=== PATIENT | female | born 1965 | race Caucasian/White ===

== ENCOUNTER → 2019-11-23 16:37 | Outpatient (CLI) | payer OTHER, SELFPAY ==
--- NOTE | 2019-11-23 | DI.MRI.S_ITS ---
PROCEDURE: MR KNEE RT WO CON INDICATIONS: right knee pain TECHNIQUE: Noncontrast sagittal PD fast spin echo and T2 fast spin echo with fat saturation, sagittal 3-D FLASH with fat saturation; coronal T1 spin echo and PD fast spin echo with fat saturation, and axial PD fast spin echo with fat saturation through the knee. COMPARISON: [facility], MR, LOWER EXTREM. JNT WO CONTRAST, 12/12/2008, 7:49. FINDINGS: Image quality: Degraded by metallic artifact. Visualized marrow signal is grossly unremarkable. The quadriceps tendon demonstrates moderate to high-grade tearing, which is most severe roughly 40 mm proximal to the patellar insertion site. Patellar tendon is intact. Peripheral soft tissues are grossly unremarkable. IMPRESSION: 1. Limited examination secondary to knee arthroplasty artifact. 2. Moderate to high-grade tearing of the quadriceps tendon. Dictated by: Uday Lovell M.D. on 11/26/2019 at 10:36 Approved by: Uday Lovell M.D. on 11/26/2019 at 10:40
== END ==
PROVIDERS: Family Provider Specialist; PCP Family Medicine; Referring Provider Orthopaedic Surgery; Visit Provider Orthopaedic Surgery
DX: M25.561 Pain in right knee (principal); S76.111A Strain of right quadriceps muscle, fascia and tendon, initial encounter; Z96.651 Presence of right artificial knee joint
CPT/HCPCS: 73721

== ENCOUNTER → 2019-12-15 10:40 | Outpatient (CLI) | payer OTHER, SELFPAY ==
[2019-12-16 16:04] LABS: COVID19 Sendout Not Detected (Not Detect)
== END ==
PROVIDERS: Family Provider Specialist; PCP Family Medicine; Visit Provider Physician Assistant
DX: Z11.59 Encounter for screening for other viral diseases (principal)
CPT/HCPCS: 87635

== ENCOUNTER → 2023-12-07 07:50 | Outpatient (CLI) | payer OTHER, SELFPAY ==
--- NOTE | 2023-12-07 07:52 | DI.MRI.S_ITS ---
PROCEDURE: MR FEMUR LT WO CON INDICATIONS: PARTIAL HAMSTRING TEAR,LEFT TECHNIQUE: Noncontrast coronal and sagittal T1 spin echo and STIR; axial T1 spin echo and T2 fast spin echo with fat saturation through the left femur. COMPARISON: None. FINDINGS: Image quality: Excellent. Bones: Susceptibility artifact about bilateral knee, likely representing bilateral knee arthroplasty. Marrow signal for both femurs are otherwise normal for age. Soft tissues: Prior repair of the left hamstring tendon with suture anchor at the left ischial tuberosity. The left semimembranosus tendon origin is intact. There is low-grade, partial thickness tear of the conjoined tendon at the ischial tuberosity. There is additional partial thickness tear of the adductor jj tendon at the ischial tuberosity insertion. No associated muscle edema. No fatty atrophy. IMPRESSION: 1. Status post prior repair of the left hamstring tendons with suture anchors at the left ischial tuberosity. Partial-thickness tear of the conjoined tendon of the left hamstring , and partial-thickness tear of the left adductor jj at the ischial tuberosity. Dictated by: Sailaja Reyes M.D. on 12/08/2023 at 21:30 Approved by: Sailaja Reyes M.D. on 12/08/2023 at 21:41
== END ==
LOC: MRI 07:52
PROVIDERS: Family Provider Specialist; PCP Student in an Organized Health Care Education/Training Program; Referring Provider Orthopaedic Surgery; Visit Provider Orthopaedic Surgery
DX: S76.312A Strain of muscle, fascia and tendon of the posterior muscle group at thigh level, left thigh, initial encounter (principal); X58.XXXA Exposure to other specified factors, initial encounter
CPT/HCPCS: 73718

== ENCOUNTER 2024-09-06 10:23 | Emergency (ER) | payer OTHER, SELFPAY ==
[2024-09-06] VITALS (7 sets, daily range): BP systolic 153–185; BP diastolic 73–99; PULSE 56–70; RESP 13–19; O2SAT 91–100; BMI 30.9
--- NOTE | 2024-09-06 10:35 | DI.RAD.S_ITS ---
PROCEDURE: XR CHEST 1V INDICATIONS: Shortness of breath TECHNIQUE: One view of the chest was acquired. COMPARISON: None. FINDINGS: Surgical changes and devices: Left chest wall device. Lungs and pleura: Lungs are clear. No pleural effusions or pneumothorax. Mediastinum: Mediastinal contours appear normal. Heart size is normal. Bones and chest wall: No suspicious bony lesions. Overlying soft tissues appear unremarkable. IMPRESSION: No acute cardiopulmonary abnormality is seen. Dictated by: Glenn Edwards M.D. on 09/06/2024 at 11:26 Approved by: Glenn Edwards M.D. on 09/06/2024 at 11:28
--- NOTE | 2024-09-06 10:35 | EKG_ITS ---
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
[2024-09-06 11:19] LABS: Add Manual Diff / Slide Review NO; Basophils Absolute Auto 100 /uL (0-100); Basophils Percent Auto 1.3 % (0-2); Eosinophils Absolute Auto 100 /uL (0-450); Eosinophils Percent Auto 2.1 % (2-4); Hematocrit 44.6 % (36-46); Hemoglobin 15.3 g/dL (12.0-16.0); Lymphocytes Absolute Auto 1800 /uL (1100-4500); Lymphocytes Percent Auto 32.3 % (25-40); Mean Corpuscular HGB Conc 34.2 % (30-36); Mean Corpuscular Hemoglobin 30.3 PG (26-34); Mean Corpuscular Volume 88.6 fL (80-100); Monocytes Absolute Auto 400 /uL (0-900); Monocytes Percent Auto 7.2 % (3-14); Neutrophils Absolute Auto 3200 /uL (1500-7000); Neutrophils Percent Auto 57.1 % (50-75); Platelet Count 322 X10^3/uL (150-400); Red Blood Cell Count 5.03 X10^6/uL (4.0-5.2); White Blood Cell Count 5.5 X10^3/uL (4.5-11.0)
[2024-09-06 11:29] LABS: Prothrombin Time 11.6 SECONDS (9.4-12.5)
[2024-09-06 11:34] LABS: Alanine Aminotransferase 31 IU/L (<35); Albumin 4.6 g/dL (3.5-5.0); Albumin Globulin Ratio 1.4 (1.0-2.8); Alkaline Phosphatase 125 U/L (38-126); Aspartate Aminotransferase 31 IU/L (14-36); BUN Creatinine Ratio 20.5 (6-22); Bilirubin Total 0.7 mg/dL (0.2-1.3); Blood Urea Nitrogen 16 mg/dL (7-17); Calcium 9.4 mg/dL (8.4-10.2); Carbon Dioxide 23 mmol/L (22-32); Chloride 107 mmol/L (98-107); Estimated Glomerular Filt Rate > 60 mL/min (>60); Globulin 3.3 g/dL (1.7-4.1); Glucose 93 mg/dL (70-99); HEMOLYSIS < 15 (0-50); Sodium 139 mmol/L (137-145); Total Protein 7.9 g/dL (6.3-8.2)
[2024-09-06 11:45] LABS: NT-proBNP (BNP-Adult 18+) 47 pg/mL (<125); Troponin I < 0.012 ng/mL (0.01-0.034)
[2024-09-06 13:02] LABS: Lipase 81 U/L (23-300)
[2024-09-06] MEDS: ONDANSETRON 4 MG/2 ML INJ IV (13:28)
[2024-09-06] MEDS: SODIUM CHLORIDE 0.9% 1,000 ML 1000 ML IV (13:28)
[2024-09-06 13:53] LABS: Troponin I < 0.012 ng/mL (0.01-0.034)
--- NOTE | 2024-09-06 17:28 | ED_ITS ---
HPI - Dizziness General Chief Complaint: Dizziness Stated Complaint: Weakness in chest area mild SOB This morning Time Seen by Provider: 09/06/24 12:29 Source: patient, RN notes reviewed and old records reviewed Mode of arrival: Ambulatory Limitations: no limitations History of Present Illness HPI Narrative: [age] year history of hypertension, hypothyroidism, ADD presents with complaint of feeling little bit dizzy sort of a tingling bilateral upper chest, a little bit of nausea and some fluttering sensation in her chest. Denies any chest pain or pressure. Little bit short of breath. Denies any nausea or vomiting. Nurse developed some diarrhea no black or bloody stools. Patient has noted a little bit of epigastric discomfort but describes it as very mild. No back or flank pain. No new swelling in extremities. No other urinary symptoms. Patient states she was feeling much improved at this time on evaluation. Patient takes losartan/HCTZ, levothyroxine, Vyvanse, oral progesterone include diclofenac daily. States prior hamstring surgery and biceps surgery as well as bilateral knee replacement. Adverse reactions to tetracycline erythromycin. No tobacco, occasional alcohol, no recreational drugs. Related Data Home Medications ?Medication ?Instructions ?Recorded ?Confirmed LEVOTHYROXINE SODIUM (LEVOTHROID) 0.1 mg PO QDAY ##0 0 06/30/11 [VOLVERINE] ##0 06/30/11 rosuvastatin 5 mg tablet (Crestor) 5 mg PO QDAY ##0 Allergies Allergy/AdvReac Type Severity Reaction Status Date / Time erythromycin base Allergy Mild Rash Verified 09/06/24 10:51 Tetracyclines Allergy Unknown Unverified 09/06/24 10:51 Review of Systems Review of Systems ROS Unobtainable: All systems reviewed & are unremarkable except as noted in HPI and below Patient History Social History Smoking Status: Never smoker Smoking Status: Never smoker Exam Narrative Exam Narrative: GENERAL: Alert and oriented x three, female in no acute duress HEENT: Head normocephalic, atraumatic, EOMI, pupils reactive, face symmetric, moist mucous membranes NECK: Supple, full range of motion CARDIOVASCULAR: Regular rate and rhythm without murmurs, rubs or gallops. No JVD. No edema bilateral lower extremities. RESPIRATORY: Breath sounds equal bilaterally, no wheezes rales or rhonchi. ABDOMEN: Soft, nontender. Normoactive bowel sounds all 4 quadrants. No guarding or rebound, rigidity, no mass : No CVA tenderness EXTREMITIES: Normal range of motion, no clubbing or edema. Neurovascularly intact NEUROLOGICAL: Cranial nerves II through XII grossly intact. Moving all extremities SKIN: Warm, dry, no petechiae, no rashes or lesions. Initial Vital Signs Initial Vital Signs: Vital Signs Pulse Rate 70 09/06/24 10:40 Respiratory Rate 17 09/06/24 10:40 Blood Pressure 153/73 H 09/06/24 10:40 Pulse Oximetry 98 09/06/24 10:40 Oxygen Delivery Method Room Air 09/06/24 10:40 Course Orders Ordered: Discontinued Medications Sodium Chloride (Normal Saline 0.9%) 1,000 mls @ 1,000 mls/hr IV BOLUS ONE Stop: 09/06/24 13:28 Last Infusion: 09/06/24 14:57 Dose: Infused Documented By: Admin: 09/06/24 13:28 Dose: 1,000 mls/hr Documented By: LUIS Ondansetron HCl (Ondansetron 4 Mg/2 Ml Inj) 4 mg IV NOW ONE Stop: 09/06/24 12:30 Last Admin: 09/06/24 13:28 Dose: 4 mg Documented By: LUIS Vital Signs Vital signs: Vital Signs - 8 hr 09/06/24 10:40 09/06/24 13:25 09/06/24 13:31 Pulse Rate 70 58 L 67 Respiratory Rate 17 19 18 Blood Pressure 153/73 H Pulse Oximetry 98 97 91 Oxygen Delivery Method Room Air 09/06/24 13:32 09/06/24 13:32 09/06/24 14:00 Pulse Rate 57 L 56 L Respiratory Rate 13 Blood Pressure 173/81 H Pulse Oximetry 97 97 Oxygen Delivery Method 09/06/24 14:00 09/06/24 14:30 09/06/24 14:30 Pulse Rate 60 Respiratory Rate 14 Blood Pressure 175/81 H 185/86 H Pulse Oximetry 97 Oxygen Delivery Method MDM - Dizziness Lab Data 09/06/24 11:06 09/06/24 11:06 Labs: Lab Results 09/06/24 09/06/24 Range/Units 11:06 13:20 WBC 5.5 (4.5-11.0) X10^3/uL RBC 5.03 (4.0-5.2) X10^6/uL Hgb 15.3 (12.0-16.0) g/dL Hct 44.6 (36-46) % MCV 88.6 (80-100) fL MCH 30.3 (26-34) PG MCHC 34.2 (30-36) % RDW 14.0 (11.6-14.8) % Plt Count 322 (150-400) X10^3/uL Neut % (Auto) 57.1 (50-75) % Lymph % (Auto) 32.3 (25-40) % [place] % (Auto) 7.2 (3-14) % Eos % (Auto) 2.1 (2-4) % Baso % (Auto) 1.3 (0-2) % Neut # (Auto) 3200 (8477-6007) /uL Lymph # (Auto) 1800 (6973-3791) /uL [place] # (Auto) 400 (0-900) /uL Eos # (Auto) 100 (0-450) /uL Baso # (Auto) 100 (0-100) /uL PT 11.6 (9.4-12.5) SECONDS INR 1.0 (0.9-1.3) Sodium 139 (137-145) mmol/L Potassium 4.0 (3.4-5.1) mmol/L Chloride 107 (98-107) mmol/L Carbon Dioxide 23 (22-32) mmol/L BUN 16 (7-17) mg/dL Creatinine 0.78 (0.52-1.04) mg/dL Estimated GFR > 60 (>60) mL/min BUN/Creatinine Ratio 20.5 (6-22) Glucose 93 (70-99) mg/dL Lactate 1.0 (0.7-2.1) mmol/L Calcium 9.4 (8.4-10.2) mg/dL Total Bilirubin 0.7 (0.2-1.3) mg/dL AST 31 (14-36) IU/L ALT 31 (<35) IU/L Alkaline Phosphatase 125 (38-126) U/L Troponin I < 0.012 < 0.012 (0.01-0.034) ng/mL NT-Pro-B Natriuret Pep 47 (<125) pg/mL Total Protein 7.9 (6.3-8.2) g/dL Albumin 4.6 (3.5-5.0) g/dL Globulin 3.3 (1.7-4.1) g/dL Albumin/Globulin Ratio 1.4 (1.0-2.8) Lipase 81 (23-300) U/L Urine Dip Bedside Urine Glucose Negative Bedside Urine Bilirubin - Negative Bedside Urine Ketone - Negative Urine Specific [place] 1.015 Bedside Urine Occult Blood - Negative Bedside Urine pH 6.0 Bedside Urine Protein - Negative Bedside Urine Urobilinogen - Negative Bedside Urine Nitrite - Negative Bedside Urine Leukocytes - Negative Esterase MDM Narrative Medical decision making narrative: CBC is negative, INR is negative, chemistries are normal, troponins less than 0.012 with a repeat of less than 0.012. Chest x-ray is negative EKG sinus rhythm rate of 63 GA 182 QRS 82 QTC of 427, no acute ST changes. Point of care urine is negative. Patient had fluids and Zofran. Discharge Plan Departure Patient Disposition: Home Clinical Impression: Dizziness Instructions: DI for Dizziness-Nonvertigo Activity Restrictions/Additional Instructions: Follow up for recheck as needed. I hope you continue to feel improved. Please return if you have new chest pain, new shortness of breath, lightheadedness or passing out, rapidly worsening or new abdominal back or flank pain, persistent vomiting, black or bloody stools or other new or concerning changes. Prescriptions: No Action rosuvastatin [Crestor] 5 MG tablet 5 mg PO QDAY Qty: 0 LEVOTHYROXINE SODIUM (LEVOTHROID) 0.1 mg PO QDAY Qty: 0 [VOLVERINE] Qty: 0 Referrals: Cristi Sepulveda [Primary Care Provider, Family Practice] Stand Alone Forms: Patient Portal/API
== END 2024-09-06 17:57 | disposition home or self-care (01) ==
PROVIDERS: Emergency Provider Emergency Medicine; Family Provider Specialist; PCP Student in an Organized Health Care Education/Training Program
DX: R42 Dizziness and giddiness (principal); R07.9 Chest pain, unspecified; R06.02 Shortness of breath; R10.13 Epigastric pain
CPT/HCPCS: 36415; 71045; 80053; 81003; 83605; 83690; 83880; 84484; 85025; 85610; 93005; 96361; 96374; 99284; J2405